=== PATIENT | female | born 1980 | race Two or more races ===

== ENCOUNTER 2022-12-19 05:25 | Day surgery (SDC) | payer OTHER ==
[2022-12-11 10:03] LABS: CLARITY,URINE SLIGHTLY CLOUDY (Clear); COLOR,URINE YELLOW (Yellow); GLUCOSE, URINE NEGATIVE (Neg); KETONES,URINE NEGATIVE (Neg); LEUKOCYTE ESTERASE ,URINE SMALL (Neg); NITRITES, URINE POSITIVE (Neg); OCCULT BLOOD,URINE MODERATE (Neg); PROTEIN,URINE NEGATIVE (Neg); UROBILINOGEN,URINE 0.2 E.U/dL (0.2-1.0)
[2022-12-11 10:05] LABS: BASOPHILS # (AUTO) 0.1 X10'3 (0-0.2); BASOPHILS % (AUTO) 0.8 % (0-1); EOSINOPHILS # (AUTO) 0.1 X10'3 (0-0.9); EOSINOPHILS % (AUTO) 0.8 % (0-6); LYMPHOCYTES # (AUTO) 2.2 X10'3 (1.1-4.8); LYMPHOCYTES % (AUTO) 26.2 % (21-51); MEAN CORPUSCULAR HEMOGLOBIN 20.5 PG (27.0-31.0); MEAN CORPUSCULAR HGB CONC 30.5 g/dL (33.0-36.5); MEAN CORPUSCULAR VOLUME 67.1 FL (78-98); MEAN PLATELET VOLUME 7.4 FL (7.4-10.4); MONOCYTES # (AUTO) 0.5 X10'3 (0-0.9); MONOCYTES % (AUTO) 6.6 % (2-12); NEUTROPHILS # (AUTO) 5.4 X10'3 (1.8-7.7); NEUTROPHILS % (AUTO) 65.6 % (42-75); PRE OP HEMATOCRIT 31.4 % (35.0-45.0); PRE OP PLATELET COUNT 438 X10'3 (140-440); RED BLOOD COUNT 4.69 X10'6 (4.20-5.60); RED CELL DISTRIBUTION WIDTH 18.6 % (11.5-14.5)
[2022-12-11 10:08] LABS: PRE OP HEMOGLOBIN 9.6 g/dL (12.0-16.0)
[2022-12-11 10:10] LABS: UA COLLECTION TYPE CLN CATCH MIDSTREAM
[2022-12-11 10:12] LABS: BACTERIA,URINE 4+ /HPF (Neg); RBC,URINE NONE SEEN /HPF (0-2); SQUAMOUS EPITHELIAL CELL,UR MODERATE /LPF (FEW); WBC,URINE 50-100 /HPF (0-4)
[2022-12-11 10:13] LABS: MUCUS STRANDS MODERATE /LPF (Neg)
[2022-12-11 10:16] LABS: ALBUMIN 3.5 G/DL (3.4-5.0); ALBUMIN/GLOBULIN RATIO 0.9 (1.1-1.5); ALKALINE PHOSPHATASE 97 IU/L (46-116); BLOOD UREA NITROGEN 5 MG/DL (7-18); BUN/CREATININE RATIO 5.5 (10.0-20.0); CALCIUM 8.7 MG/DL (8.5-10.1); CHLORIDE 105 MMOL/L (99-107); CREATININE 0.91 MG/DL (0.40-0.90); PRE OP ALT 27 U/L (30-65); PRE OP ANION GAP 7 (8-16); PRE OP AST 19 U/L (10-37); PRE OP BILIRUB, TOTAL 0.2 MG/DL (0.0-1.0); PRE OP GLUCOSE 102 MG/DL (70-104); PRE OP POTASSIUM 3.9 MMOL/L (3.4-5.1); PRE OP SODIUM 136 MMOL/L (135-145); TOTAL PROTEIN 7.2 G/DL (6.4-8.2); eGFR 67 ML/MIN
[2022-12-11 10:21] LABS: PLATELET ESTIMATE NORMAL
[2022-12-11 10:22] LABS: ANISOCYTOSIS 2+; MICROCYTOSIS 2+
[2022-12-11 10:23] LABS: ELLIPTOCYTES FEW
[2022-12-11 10:27] LABS: HCG SERUM QL NEGATIVE
[2022-12-19] VITALS (11 sets, daily range): BP systolic 114–136; BP diastolic 66–92
[~2022-12-19] VITALS: Ht 154.9 cm; Wt 81.8 kg
[~2022-12-19 05:25] MED LIST: IBUP-1986 PO; ringers solution, lacted 1,000 ML IV SCH
[2022-12-19] MEDS ORDERED: famotidine 20mg tablet PO ONE (05:30)
[2022-12-19] MEDS ORDERED: cefazolin 2gm/D5W 100mL 100 ML IV ONE (05:30)
[2022-12-19] MEDS ORDERED: BUPIVAcaine/PF 2.5 mg/ml (0.25%) 30ml vial ONE (07:07)
[2022-12-19] MEDS ORDERED: bacitracin 15gm ointment TP ONE (07:07)
[2022-12-19] MEDS ORDERED: midazolam 1 mg/ML 2ml injection ONE (07:15)
[2022-12-19] MEDS ORDERED: fentaNYL/PF 50MCG/1 ML 2ML syringe ONE ×2 (07:15→07:50)
[2022-12-19] MEDS ORDERED: proCHLORperazine 10 MG/2 ml inj IV PRN (07:30)
[2022-12-19] MEDS ORDERED: meperidine/PF 25mg/ml syringe IV PRN ×3 (07:30)
[2022-12-19] MEDS ORDERED: ringers solution, lacted 1,000 ML IV SCH (07:30)
[2022-12-19] MEDS ORDERED: morphine 2 MG/ML inj. syringe IV PRN (07:30)
[2022-12-19] MEDS ORDERED: ondansetron/PF 4mg/2ml inj IV PRN (07:30)
[2022-12-19] MEDS ORDERED: morphine 4 MG/ML inj SYRINge IV PRN (07:30)
[2022-12-19] MEDS ORDERED: sevoflurane 250ml liquid IH ONE (07:31)
[2022-12-19] MEDS ORDERED: rocuronium 10mg/ml inj IV ONE (07:55)
[2022-12-19] MEDS ORDERED: ondansetron/PF 4mg/2ml inj ONE (07:55)
[2022-12-19] MEDS ORDERED: acetaminophen 1,000mg/100ml IV 100 ML IV ONE (07:55)
[2022-12-19] MEDS ORDERED: LIDOcaine 2% (20mg/ml) 5ml vial ONE (07:55)
[2022-12-19] MEDS ORDERED: dexamethasone sod phosphate 4mg/ml inj. ONE (07:55)
[2022-12-19] MEDS ORDERED: propofol inj 20 ML IV ONE (07:55)
[2022-12-19] MEDS ORDERED: sugammadex 200mg/2ml injection IV ONE (08:05)
--- NOTE | 2022-12-19 08:13 | NUR ---
Received from OR via [facility] TO [facility] 7, accompanied by Anesthesiologist DR WALLIS and report given by Anesthesiolgist. PT PRESENTS WITH PIV 20G RIGHT HAND, RIGHT FOOT/ANKLE DRESSING CDI, SPO2 99 6L MASK, LR RUNNING AT 100MLS/HR, VSS. Addendum: 12/19/22 at 0830 by Kaleigh Bullard RN, RN Amended: Links added.
[2022-12-19] MEDS ORDERED: ipratropium/albuterol 3ml nebule NEB PRN (08:20)
--- NOTE | 2022-12-19 08:20 | NUR ---
ICE PACK PLACED UNER PT RIGHT KNEE AND ON RIGHT FOOT. Addendum: 12/19/22 at 0908 by Kaleigh Bullard RN, RN Amended: Links added.
--- NOTE | 2022-12-19 08:30 | NUR ---
RT AT BEDSIDE Addendum: 12/19/22 at 0841 by Kaleigh Doss - KIANA RN Amended: Links added.
[2022-12-19] MEDS ORDERED: HYDROcodone/acetaminophen 10/325mg tab PO ONE (08:55)
--- NOTE | 2022-12-19 09:53 | NUR ---
DC HOME: ALL DISCHARGE CRITERIA HAS BEEN MET. VSS, PAIN AT A TOLERABLE LEVEL, VOIDING AND ABLE TO SAFELY AMBULATE AND TRANSFER SELF. IV TAKEN OUT WITHOUT ANY COMPLICATIONS. ALL DISCHARGE INSTRUCTIONS COVERED WITH PATIENT AND ALL QUESTIONS ANSWERED. PATIENT TAKEN OUT VIA WHEELCHAIR TO PERSONAL VEHICLE WHERE FAMILY/FRIEND DROVE PATIENT HOME. Addendum: 12/19/22 at 1058 by Kaleigh Bullard RN, RN Amended: Links added.
== END 2022-12-19 09:53 | disposition home or self-care (01) ==
LOC: PAS 05:25
PROVIDERS: ATTEND Podiatrist Foot & Ankle Surgery
DX: M72.2 Plantar fascial fibromatosis (principal); M77.31 Calcaneal spur, right foot; D64.9 Anemia, unspecified; J45.909 Unspecified asthma, uncomplicated; E66.9 Obesity, unspecified; Z68.34 Body mass index [BMI] 34.0-34.9, adult; Z98.890 Other specified postprocedural states; Z79.899 Other long term (current) drug therapy
CPT/HCPCS: 28060; 28119; 36415; 80053; 81001; 82948; 84703; 85025; 87077; 87088; 87186; 94640; 94760; A6223; J0131; J0690; J1100; J2175; J2250; J2270; J2405; J2704; J3010; J3490; J7030; J7120; Z7506; Z7512; 85008; A4215; A4618; A6253; A6446; A6449; A7000